=== PATIENT | female | born 1965 ===

== ENCOUNTER 2016-05-12 21:56 | Emergency (ER) | payer OTHER ==
[2016-05-12 21:56] VITALS: BMI 23.0
[2016-05-12 22:08] VITALS: BP 167/98; PULSE 112; RESP 16; TEMP 97.1; O2SAT 98
[2016-05-12] MEDS ORDERED: Oxycodone/Acetaminophen 5/325 mg Tab PO STA (22:29)
[2016-05-12] MEDS ORDERED: Oxycodone/Acetaminophen 5/325 mg Tab ONE (22:33)
--- NOTE | 2016-05-12 23:36 | CP.PCM.CON ---
History of Present Illness - History of Present Illness History of Present Illness: Patient is a 50 year old female with PMHx of fibromyalgia, RA, asthma, and HTN seen in the ED after podiatry consultation. Patient is 3 weeks s/p left foot triple arthrodesis and was sent by Dr. Plascencia, who performed the surgery, because she was complaining of pain and swelling to her forefoot. Patient states that she did not think the bandage was too tight around her foot. Patient states that she is currently taking percocet for the pain. She states that she has been icing and elevating her foot as well and nothing has helped the pain. Patient denies pain along the surgical site, just at the forefoot. Patient denies any other acute events, denies new onset of trauma to the foot. Patients dressing was clean,dry,intact. Denies n/f/v/c/d/sob. Review of Systems - Constitutional Constitutional: As Per HPI Past Patient History - Infectious Disease Hx of Infectious Diseases: None - Past Medical History & Family History Past Medical History?: Yes - Past Social History Smoking Status: Light Smoker < 10 Cigarettes Daily - CARDIAC Hx Cardiac Disorders: Yes Hx Hypertension: Yes - PULMONARY Hx Respiratory Disorders: Yes Hx Asthma: Yes Other/Comment: WHEEZING - NEUROLOGICAL Hx Neurological Disorder: Yes Other/Comment: FIBROMYALGIA - HEENT Hx HEENT Problems: No - RENAL Hx Chronic Kidney Disease: No - ENDOCRINE/METABOLIC Hx Endocrine Disorders: No Other/Comment: RA. fibromyalgia - HEMATOLOGICAL/ONCOLOGICAL Hx Blood Disorders: No Hx Blood Transfusions: No - INTEGUMENTARY Hx Dermatological Problems: No - MUSCULOSKELETAL/RHEUMATOLOGICAL Hx Musculoskeletal Disorders: Yes Hx Back Pain: Yes (chronic) Hx Falls: No ( DENIES) Hx Rheumatoid Arthritis: Yes Other/Comment: MUSCLE WEAKNESS - GASTROINTESTINAL Hx Gastrointestinal Disorders: No - GENITOURINARY/GYNECOLOGICAL Hx Genitourinary Disorders: No - PSYCHIATRIC Hx Psychophysiologic Disorder: No Hx Substance Use: No - SURGICAL HISTORY Hx Surgeries: Yes Hx Section: Yes Hx Musculoskeletal Surgery: Yes (Lft ankle ligament repair) Other/Comment: LEFT ANKLE-2016;C-SECTIONX1 - ANESTHESIA Hx Anesthesia: Yes Hx Anesthesia Reactions: No Hx Malignant Hyperthermia: No Meds Allergies/Adverse Reactions: Allergies Allergy/AdvReac Type Severity Reaction Status Date / Time Penicillins Allergy Unknown Verified 12/03/15 02:08 SEAFOOD Allergy Uncoded 12/03/15 02:09 Physical Exam - Constitutional Appears: Well, Non-toxic, No Acute Distress - Extremities Exam Additional comments: left foot focused: vascular: palpable DP pulse, lightly palpable PT pulse, CFT < 3 sec to all digits, TG wnl, nonpitting edema localized to dorsum of forefoot neuro: grossly intact derm: nonpitting edema to dorsal forefoot, no erythema, juani intact, no dehiscence, no open lesions, no purulence, no malodor, surgical incision site well-coapted, no acute clinical signs of infection, no ascending cellulitlis ortho: pain on palpation to dorsal forefoot - Neurological Exam Neurological exam: Alert, Oriented x3 - Psychiatric Exam Psychiatric exam: Normal Affect, Normal Mood Results - Vital Signs Recent Vital Signs: Last Vital Signs Temp 97.1 F L 05/12/16 22:03 Pulse 112 H 05/12/16 22:03 Resp 16 05/12/16 22:03 BP 167/98 H 05/12/16 22:03 Pulse Ox 98 05/12/16 22:03 - Labs Result Diagrams: 05/12/16 00:05 05/12/16 00:05 Assessment & Plan - Assessment and Plan (Free Text) Assessment: 51 y/o female seen at bedside in the ED 3 weeks s/p left foot triple arthrodesis for pain and swelling in left foot Plan: patient evaluated and chart reviewed discussed in detail with attending Dr. Plascencia labs and vitals reviewed; afebrile, WBC 19.8 x rays of left foot show soft tissue swelling, hardware intact and in good alignment CT shows soft tissue swelling, hardware intact, no evidence of osseous deformity applied webril, QUINTEN, webril QUINTEN to LLE patient instructed to continue icing and elevating extremity continue abx as instructed patient instructed to follow up with Dr. Plascencia in his office tomorrow
--- NOTE | 2016-05-12 23:42 | ED PDOC ---
Lower Extremity Pain/Injury Time Seen by Provider: 05/12/16 22:22 Chief Complaint (Nursing): Lower Extremity Problem/Injury Chief Complaint (Provider): left foot swelling History Per: Patient History/Exam Limitations: no limitations Onset/Duration Of Symptoms: Days Current Symptoms Are (Timing): Still Present Additional Complaint(s): 51yo female s/p fracture repair on April [address] Plascencia at this hospital presents to the ED with c/o left foot swelling. Has been in splint since surgery and for last week has increased swelling to foot. Some pain, but has been same intensity since the surgery. No fever, new trauma. Been on lovenox, antibiotics, and pain meds since surgery. Has been keeping leg elevated and icing as instructed. Discussed swelling with her doctor who told patient to come to ED for further eval. No calf pain, swelling, fever, chills, rash, bleeding, numbness. Past Medical History Reviewed: Historical Data, Nursing Documentation, Vital Signs Vital Signs: Last Vital Signs Temp 97.1 F L 05/12/16 22:03 Pulse 112 H 05/12/16 22:03 Resp 16 05/12/16 22:03 BP 167/98 H 05/12/16 22:03 Pulse Ox 98 05/12/16 22:03 - Medical History PMH: Asthma, Fibromyalgia, HTN, Rheumatoid Arthritis Denies: Chronic Kidney Disease - Surgical History Other surgeries: left foot fracture repair - Family History Family History: States: No Known Family Hx - Social History Current smoker - smoking cessation education provided: No - Immunization History Hx Tetanus Toxoid Vaccination: No Hx Influenza Vaccination: No Hx Pneumococcal Vaccination: No - Home Medications Home Medications: Ambulatory Orders Medication Instructions Recorded Albuterol HFA [Ventolin HFA 90 0.09 mg IH Q4 PRN #1 puff 03/15/15 mcg/actuation (8 g)] Pregabalin [Lyrica] 75 mg PO DAILY 08/15/15 Albuterol/Ipratropium [Duoneb 3 2 ea IH Q4H PRN #100 neb 09/10/15 mg/0.5 mg (3 ml) UD] Spacer, Inhalation [Aerochamber] 1 dev IH DAILY #1 dev 09/10/15 Fluconazole [Diflucan] 150 mg PO ONCE #2 tab 10/04/15 Leflunomide [Arava] 20 mg PO DAILY 10/04/15 Mometasone/Formoterol [Dulera 200 2 puff PO BID PRN 12/03/15 Mcg/5 Mcg Inhaler] hydroCHLOROthiazide [Hydrodiuril] 25 mg PO DAILY #14 tab 12/04/15 oxyCODONE/Acetaminophen [Percocet 1 tab PO TID #24 tab 12/04/15 5/325 mg Tab] Enoxaparin [Lovenox] 40 mg IJ DAILY #14 syr 04/22/16 Enoxaparin [Lovenox] 40 mg SC DAILY 04/22/16 Prednisone [Conchis] 5 mg PO DAILY 04/22/16 amLODIPine [Norvasc] 10 mg PO DAILY 04/22/16 - Allergies Allergies/Adverse Reactions: Allergies Allergy/AdvReac Type Severity Reaction Status Date / Time Penicillins Allergy Unknown RASH Verified 05/13/16 21:39 SEAFOOD Allergy RASH Uncoded 05/13/16 21:39 Review of Systems ROS Statement: Except As Marked, All Systems Reviewed And Found Negative Constitutional: Positive for: Other (no new trauma, no bleeding ). Negative for : Fever, Chills Musculoskeletal: Positive for: Other (left foot swelling, no calf pain or swelling ) Skin: Negative for: Rash Neurological: Negative for: Numbness Physical Exam - Reviewed Nursing Documentation Reviewed: Yes Vital Signs Reviewed: Yes - Physical Exam Appears: Positive for: Well, Non-toxic, No Acute Distress Head Exam: Positive for: ATRAUMATIC, NORMAL INSPECTION, NORMOCEPHALIC Skin: Positive for: Warm, Dry Extremity: Positive for: Normal ROM, Capillary Refill (less than 2 seconds ), Other (LLE: large surgical wounds to b/l malleolus extending down into feet, juani clean, dry, and intact; moderate erythema to dorsum of foot especially to mid and forefoot, pitting edema, minimal tenderness, minimal erythema, no localized fluctuance, difficulty palpating DP pulse due to swelling, light touch intact, no lower leg edema ). Negative for: Calf Tenderness, Deformity Neurologic/Psych: Positive for: Alert, Oriented - Laboratory Results Result Diagrams: 05/12/16 00:05 05/12/16 00:05 - ECG O2 Sat by Pulse Oximetry: 98 Pulse Ox Interpretation: Normal (RA) Medical Decision Making Medical Decision Makin: Impression: post-surgical foot edema Plan: Case discussed with Dr. Andrade (podiatry resident) who came to ED and evaluated the patient. CT LLE Labs XR left ankle and left foot Percocet 2 tab PO reassess Elevated WBC but pt on chronic steroid for RA. Elevated glucose c/w diabetes. Pt to be dc'd and f/u podiatry in AM Scribe Attestation: Documented by Bárbara Bull acting as a scribe for Yoanna Portillo MD. Provider Scribe Attestation: All medical record entries made by the Scribe were at my direction and personally dictated by me. I have reviewed the chart and agree that the record accurately reflects my personal performance of the history, physical exam, medical decision making, and the department course for this patient. I have also personally directed, reviewed, and agree with the discharge instructions and disposition. Disposition - Clinical Impression Clinical Impression: Edema of left foot Counseled Patient/Family Regarding: Studies Performed, Diagnosis, Need For Followup - Disposition Referrals: Garrett Plascencia DPM [Staff Provider] - 05/13/16 Disposition: Routine/Home Disposition Time: 00:00 Condition: STABLE Additional Instructions: FOLLOW UP WITH DR SAINZ TOMORROW. CONTINUE TO ICE EXTREMITY AND KEEP IT ELEVATED MUCH POSSIBLE CONTINUE MEDICATIONS PRESCRIBED. RETURN TO ER FOR WORSENING SYMPTOMS. Instructions: Pain Management After Surgery (GEN)
[2016-05-13 00:08] LABS: BASO # 0.2 K/uL (0.0-0.2); BASO % 1.1 % (0.0-2.0); EOS # 0.2 K/uL (0.0-0.7); EOS % 0.8 % (0.0-4.0); HEMATOCRIT 38.5 % (34.0-47.0); LYMPH # 4.4 K/uL (1.0-4.3); LYMPH % 22.4 % (20.0-40.0); MEAN CELL VOLUME 96.6 fl (81.0-99.0); MEAN CORPUSCULAR HEMOGLOBIN 31.1 pg (27.0-31.0); MEAN CORPUSCULAR HGB CONC 32.2 g/dL (33.0-37.0); MEAN PLATELET VOLUME 8.2 fl (7.2-11.7); MONO # 1.6 K/uL (0.0-0.8); MONO % 8.3 % (0.0-10.0); NEUT # 13.4 K/uL (1.8-7.0); NEUT % 67.4 % (50.0-75.0); NRBC % 0.1 % (0.0-0.0); RED CELL DISTRIBUTION WIDTH 14.6 % (11.5-14.5); WHITE BLOOD COUNT 19.8 K/uL (4.8-10.8)
[2016-05-13 00:21] LABS: ALB/GLOB RATIO 1.3 (1.0-2.1); ALKALINE PHOSPHATASE 97 U/L (38-126); ALT/SGPT 31 U/L (9-52); AST/SGOT 16 U/L (14-36); BILIRUBIN,TOTAL 0.3 mg/dl (0.2-1.3); BLOOD UREA NITROGEN 15 mg/dl (7-17); CALCIUM 9.6 mg/dL (8.4-10.2); CARBON DIOXIDE 25 mmol/L (22-30); CHLORIDE 104 mmol/L (98-107); GFR AFRICAN-AMERICAN > 60; GLUCOSE,RANDOM 211 mg/dL (65-105); POTASSIUM 3.2 MMOL/L (3.6-5.0); SODIUM 141 mmol/l (132-148); TOTAL PROTEIN 6.7 G/DL (6.3-8.2)
--- NOTE | 2016-05-13 14:10 | RAD ---
PROCEDURE: Left ankle dated in 04/201905/09/2016. History: HISTORY: LEFT foot pain and swelling s/p surgery COMPARISON: Comparison made with concurrent radiographs of the left foot and prior radiographs of the left foot dated 04/22/2016. TECHNIQUE: Three views of the left ankle performed. FINDINGS: Current study re- demonstrates postsurgical changes of the left hindfoot and midfoot unchanged. Skin closure juani overlying the medial and lateral margins of the ankle and midfoot region. IMPRESSION: Stable postsurgical changes left hindfoot and midfoot. . Please refer to operative report for additional details
--- NOTE | 2016-05-13 15:33 | RAD ---
Left foot radiographs 05/12/2016 PROCEDURE: HISTORY: LEFT foot pain and swelling s/p surgery COMPARISON: Correlation made with concurrent radiographs of the left ankle and prior radiographs left foot dated 04/22/2016. FINDINGS: BONES: Postoperative changes involving the mid and hindfoot again noted with satisfactory alignment. Hardware appears intact without evidence of loosening or infection. . Skin closure juani overlying the medial lateral soft tissues. JOINTS: Unchanged SOFT TISSUES: There is moderate to fairly significant circumferential soft tissue swelling at the level of the metatarsals and proximal phalanges. Findings may represent cellulitis/infection OTHER FINDINGS: None. IMPRESSION: Stable postoperative changes hindfoot and midfoot with satisfactory alignment. Hardware appears intact. There is moderate -fairly significant circumferential soft tissue swelling at the level of the metatarsals and proximal phalanges. Rule out cellulitis/infection. Note that this report was placed in PA review folder for followup
--- NOTE | 2016-05-13 16:33 | CT ---
PROCEDURE: CT of the left ankle/foot without contrast. HISTORY: LEFT foot/ankle swelling s/p surgery COMPARISON: Comparison is made to the previous x-ray of the left ankle and foot done on the same date. TECHNIQUE: Axial and reformatted coronal and sagittal CT images of the left ankle and foot were obtained without IV contrast administration. FINDINGS: Postsurgical changes are seen. The patient is status post internal fusion through the talocalcaneal articulation by large screw. There are also internal fusion and fixation devices at the tarsal bones and talonavicular articulation. The hardware are seen at appropriate position. There is small to moderate size plantar calcaneal spur. There is moderate soft tissue edema. No evidence of discrete drainable fluid collection. Moderate osteoarthritic and arthritic degenerative changes seen at the ankle and tarsal metatarsal and intra tarsal joints. IMPRESSION: Postsurgical changes as described above. Moderate diffuse soft tissue edema. No evidence of discrete fluid collection in this noncontrast study.
== END 2016-05-13 00:25 | disposition home or self-care (01) ==
LOC: H.ER 21:56
DX: Z98.890 Other specified postprocedural states (principal); R60.0 Localized edema; I10 Essential (primary) hypertension; M79.89 Other specified soft tissue disorders; Z88.0 Allergy status to penicillin; J45.909 Unspecified asthma, uncomplicated; Z71.6 Tobacco abuse counseling

== ENCOUNTER 2016-05-13 21:22 | Emergency (ER) | payer OTHER ==
[2016-05-13 21:23] VITALS: BMI 23.0
[2016-05-13 21:39] VITALS: PULSE 103; RESP 20; TEMP 97.9; O2SAT 99
--- NOTE | 2016-05-13 22:24 | ED PDOC ---
Lower Extremity Pain/Injury Time Seen by Provider: 05/13/16 22:22 Chief Complaint (Nursing): Lower Extremity Problem/Injury Chief Complaint (Provider): left foot pain History Per: Patient History/Exam Limitations: no limitations Additional Complaint(s): 51yoF in ED sent by KIM Yap for further eval of foot. pt was seen in office today, had fluids drainage from swelling to area of incision. admits to worsening of swelling with drainage and pain(burning) sensation. denies fever, chills nausea. PT had left foot triple arthrodesis 3 weeks ago. Pt was seen in Ed yesterday for similar complaints. pt with hx of RA Past Medical History Vital Signs: Last Vital Signs Temp 97.9 F 05/13/16 21:29 Pulse 103 H 05/13/16 21:29 Resp 20 05/13/16 21:29 BP Pulse Ox 99 05/13/16 21:29 - Medical History PMH: Asthma, Fibromyalgia, HTN, Rheumatoid Arthritis Denies: Chronic Kidney Disease - Family History Family History: States: Unknown Family Hx - Immunization History Hx Tetanus Toxoid Vaccination: No Hx Influenza Vaccination: No Hx Pneumococcal Vaccination: No - Home Medications Home Medications: Ambulatory Orders Medication Instructions Recorded Albuterol HFA [Ventolin HFA 90 0.09 mg IH Q4 PRN #1 puff 03/15/15 mcg/actuation (8 g)] Pregabalin [Lyrica] 75 mg PO DAILY 08/15/15 Albuterol/Ipratropium [Duoneb 3 2 ea IH Q4H PRN #100 neb 09/10/15 mg/0.5 mg (3 ml) UD] Spacer, Inhalation [Aerochamber] 1 dev IH DAILY #1 dev 09/10/15 Fluconazole [Diflucan] 150 mg PO ONCE #2 tab 10/04/15 Leflunomide [Arava] 20 mg PO DAILY 10/04/15 Mometasone/Formoterol [Dulera 200 2 puff PO BID PRN 12/03/15 Mcg/5 Mcg Inhaler] hydroCHLOROthiazide [Hydrodiuril] 25 mg PO DAILY #14 tab 12/04/15 oxyCODONE/Acetaminophen [Percocet 1 tab PO TID #24 tab 12/04/15 5/325 mg Tab] Enoxaparin [Lovenox] 40 mg IJ DAILY #14 syr 04/22/16 Enoxaparin [Lovenox] 40 mg SC DAILY 04/22/16 Prednisone [Conchis] 5 mg PO DAILY 04/22/16 amLODIPine [Norvasc] 10 mg PO DAILY 04/22/16 - Allergies Allergies/Adverse Reactions: Allergies Allergy/AdvReac Type Severity Reaction Status Date / Time Penicillins Allergy Unknown RASH Verified 05/13/16 21:39 SEAFOOD Allergy RASH Uncoded 05/13/16 21:39 - Laboratory Results Result Diagrams: 05/13/16 23:23 - ECG O2 Sat by Pulse Oximetry: 99 - Progress ED Course And Treament: podiatry evaluated pt-requests re-draw of labs. pt with elevated WBC when seen yesterday. will evaluate if pt will need admission for IV abx. Pt admits she is on steroid 10mg daily for 2 weeks during RA flare ups. morphine 2mg for pain control. pt takes perocets for pain routinely. Medical Decision Making Medical Decision Making: Pt will f.u in 1 week with MD Alethea and advised strongly to f/u rhuemotology wound dressing applies. Pt to continue to pain regimen. pt currently without elevated WBC, stable VS well appearing. at this time no clinical indication for admission at this time. Medical record review-pt with hx of above normal WBC count. Pt with hx of RA and steroid use-which may account for transient elevation of wBC. Disposition - Clinical Impression Clinical Impression: Edema of left foot - Patient ED Disposition Is Patient to be Admitted: No Counseled Patient/Family Regarding: Studies Performed, Diagnosis, Need For Followup - Disposition Disposition: Routine/Home Disposition Time: 23:59 Condition: STABLE Additional Instructions: please followup with your rheumotolgoist. Instructions: Leg Edema (ED)
--- NOTE | 2016-05-13 22:35 | CP.PCM.CON ---
History of Present Illness - History of Present Illness History of Present Illness: 50 year old female with PMHx of fibromyalgia, RA, asthma, and HTN seen in the ED after podiatry consultation. Patient is 3 weeks s/p left foot triple arthrodesis and was sent by Dr. Plascencia, who performed the surgery, because she was complaining of tingling and swelling to her left foot. She was seen in the ED last night as well as in Dr. Plascnecia's office today. In office, she states she had an I and D. She states that the tingling, burning and swelling is worse now compared to this morning. Patient states that she is currently taking percocet 10/325 for the pain, as well as cipro, and predisone. She states that she has been icing and elevating her foot as well and nothing has helped the pain. Patient denies any other acute events, denies new onset of trauma to the foot. Denies n/f/v/c/d/sob. Past Patient History - Infectious Disease Hx of Infectious Diseases: None - Past Medical History & Family History Past Medical History?: Yes - Past Social History Smoking Status: Light Smoker < 10 Cigarettes Daily - CARDIAC Hx Hypertension: Yes - PULMONARY Hx Asthma: Yes - NEUROLOGICAL Hx Neurological Disorder: Yes Other/Comment: FIBROMYALGIA - HEENT Hx HEENT Problems: No - RENAL Hx Chronic Kidney Disease: No - ENDOCRINE/METABOLIC Hx Endocrine Disorders: No Other/Comment: RA. fibromyalgia - HEMATOLOGICAL/ONCOLOGICAL Hx Blood Disorders: No Hx Blood Transfusions: No - INTEGUMENTARY Hx Dermatological Problems: No - MUSCULOSKELETAL/RHEUMATOLOGICAL Hx Rheumatoid Arthritis: Yes - GASTROINTESTINAL Hx Gastrointestinal Disorders: No - GENITOURINARY/GYNECOLOGICAL Hx Genitourinary Disorders: No - PSYCHIATRIC Hx Psychophysiologic Disorder: No Hx Substance Use: No - SURGICAL HISTORY Hx Surgeries: Yes Hx Section: Yes Hx Musculoskeletal Surgery: Yes (Lft ankle ligament repair) Other/Comment: LEFT ANKLE-2016;C-SECTIONX1 - ANESTHESIA Hx Anesthesia: Yes Hx Anesthesia Reactions: No Hx Malignant Hyperthermia: No Meds Allergies/Adverse Reactions: Allergies Allergy/AdvReac Type Severity Reaction Status Date / Time Penicillins Allergy Unknown RASH Verified 05/13/16 21:39 SEAFOOD Allergy RASH Uncoded 05/13/16 21:39 Physical Exam - Constitutional Appears: Non-toxic - Extremities Exam Additional comments: Lower extremity focused exam: Vasc: DP and PT pulses palpable 2/4 on the right. DP pulses on left non- palpable due to non-pitting edema, PT pulses lightly palpable on the left. CFT < 3 sec to all digits. Non-pitting edema localized to dorsum of left. Skin temperature warm to warm from proximal to distal b/l, with increased warmth noted left greater than right. Neuro: Gross sensation intact b/l Derm: Domi intact to surgical site on the left foot, no dehiscence,surgical site well coapted. Erythema noted to the left foot distal to the malleoli extending to the digits. Small stab incision noted to dorsum of left forefoot over 2nd metatarsal from I and D. Serous drainage noted from the left foot. No malodor, no purulence, no fluctuance noted. Non-pitting edema noted to left foot. Ortho: Pain on palpation to dorsum of left foot - Neurological Exam Neurological exam: Alert, Oriented x3 - Psychiatric Exam Psychiatric exam: Normal Affect, Normal Mood Results - Vital Signs Recent Vital Signs: Last Vital Signs Temp 97.9 F 05/13/16 21:29 Pulse 103 H 05/13/16 21:29 Resp 20 05/13/16 21:29 BP Pulse Ox 99 05/13/16 22:32 - Labs Result Diagrams: 05/13/16 23:23 05/13/16 23:23 Assessment & Plan - Assessment and Plan (Free Text) Assessment: 51 year old female with PMHx of RA, fibromyalgia, asthma, and HTN with swelling and pain in left foot Plan: Patient examined and evaluated Chart, labs, vitals reviewed Discussed in detail with attending, Dr. Plascencia Wound culture of left foot obtained CT and radiographs from 05/12/16 reviewed Continue oral abx Left foot dressed with DSD Patient to remain non-WB to LLE with crutches Patient re-evaluated 1 hour after initial exam, noted to have decreased edema and erythema to left foot Patient to keep LLE elevated as much as possible, and ice prn Follow up with Maintenance Person Follow up with Dr. Plascencia in office next week
[2016-05-13 23:28] LABS: BASO # 0.1 K/uL (0.0-0.2); BASO % 0.6 % (0.0-2.0); EOS # 0.2 K/uL (0.0-0.7); EOS % 1.6 % (0.0-4.0); HEMATOCRIT 39.3 % (34.0-47.0); MEAN CELL VOLUME 96.1 fl (81.0-99.0); MEAN CORPUSCULAR HEMOGLOBIN 31.5 pg (27.0-31.0); MEAN CORPUSCULAR HGB CONC 32.7 g/dL (33.0-37.0); MEAN PLATELET VOLUME 8.3 fl (7.2-11.7); MONO # 0.6 K/uL (0.0-0.8); MONO % 5.2 % (0.0-10.0); NEUT # 9.5 K/uL (1.8-7.0); NEUT % 83.6 % (50.0-75.0); PLATELET COUNT 346 K/uL (130-400); RED CELL DISTRIBUTION WIDTH 14.5 % (11.5-14.5); WHITE BLOOD COUNT 11.4 K/uL (4.8-10.8)
[2016-05-13 23:51] LABS: ALB/GLOB RATIO 1.3 (1.0-2.1); ALKALINE PHOSPHATASE 114 U/L (38-126); ALT/SGPT 33 U/L (9-52); AST/SGOT 22 U/L (14-36); BILIRUBIN,TOTAL 0.3 mg/dl (0.2-1.3); BLOOD UREA NITROGEN 17 mg/dl (7-17); CALCIUM 9.7 mg/dL (8.4-10.2); CARBON DIOXIDE 27 mmol/L (22-30); CHLORIDE 103 mmol/L (98-107); GFR AFRICAN-AMERICAN > 60; GLUCOSE,RANDOM 255 mg/dL (65-105); POTASSIUM 3.9 MMOL/L (3.6-5.0); SODIUM 144 mmol/l (132-148); TOTAL PROTEIN 7.2 G/DL (6.3-8.2)
[2016-05-14 01:36] LABS: BASOPHIL 2 % (0-2); EOSINOPHIL 1 % (0-7); NEUTROPHIL 78 % (42-75); TOTAL CELLS COUNTED 100
== END 2016-05-14 00:17 | disposition home or self-care (01) ==
LOC: H.ER 21:22
DX: R60.0 Localized edema (principal); I10 Essential (primary) hypertension; M06.9 Rheumatoid arthritis, unspecified; M79.7 Fibromyalgia

== ENCOUNTER 2016-10-09 03:58 | Emergency (ER) | payer OTHER ==
[2016-10-09 03:58] VITALS: BMI 23.0
[2016-10-09 04:10] VITALS: BP 156/93; PULSE 114; RESP 16; TEMP 99.7; O2SAT 97
--- NOTE | 2016-10-09 04:41 | ED PDOC ---
HPI: General Adult Time Seen by Provider: 10/09/16 04:07 Chief Complaint (Nursing): Lower Extremity Problem/Injury Chief Complaint (Provider): Diffuse Body Aches History Per: Patient History/Exam Limitations: no limitations Onset/Duration Of Symptoms: Days (x1) Current Symptoms Are (Timing): Still Present Additional Complaint(s): Flory Cooper is a 51 year old female that presents to the ED with a chief complaint of diffuse body aches and joint pain secondary to her rheumatoid arthritis and fibromyalgia that she has been experiencing for the past day. Patient reports that she regularly takes Percocet daily but has depleted her supply. She denies any trauma or fever. Of Note: Patient has not seen instrument room technician in several months due to complications in her foot surgery. Past Medical History Reviewed: Historical Data, Nursing Documentation, Vital Signs Vital Signs: Last Vital Signs Temp 99.7 F H 10/09/16 04:07 Pulse 114 H 10/09/16 04:07 Resp 16 10/09/16 04:07 BP 156/93 H 10/09/16 04:07 Pulse Ox 97 10/09/16 04:45 - Medical History PMH: Asthma, Fibromyalgia, HTN, Rheumatoid Arthritis Denies: Chronic Kidney Disease - Family History Family History: States: Unknown Family Hx - Immunization History Hx Tetanus Toxoid Vaccination: No Hx Influenza Vaccination: No Hx Pneumococcal Vaccination: No - Home Medications Home Medications: Ambulatory Orders Medication Instructions Recorded Albuterol HFA [Ventolin HFA 90 0.09 mg IH Q4 PRN #1 puff 03/15/15 mcg/actuation (8 g)] Pregabalin [Lyrica] 75 mg PO DAILY 08/15/15 Albuterol/Ipratropium [Duoneb 3 2 ea IH Q4H PRN #100 neb 09/10/15 mg/0.5 mg (3 ml) UD] Spacer, Inhalation [Aerochamber] 1 dev IH DAILY #1 dev 09/10/15 Fluconazole [Diflucan] 150 mg PO ONCE #2 tab 10/04/15 Leflunomide [Arava] 20 mg PO DAILY 10/04/15 Mometasone/Formoterol [Dulera 200 2 puff PO BID PRN 12/03/15 Mcg/5 Mcg Inhaler] hydroCHLOROthiazide [Hydrodiuril] 25 mg PO DAILY #14 tab 12/04/15 oxyCODONE/Acetaminophen [Percocet 1 tab PO TID #24 tab 12/04/15 5/325 mg Tab] Enoxaparin [Lovenox] 40 mg IJ DAILY #14 syr 04/22/16 Enoxaparin [Lovenox] 40 mg SC DAILY 04/22/16 Prednisone [Conchis] 5 mg PO DAILY 04/22/16 amLODIPine [Norvasc] 10 mg PO DAILY 04/22/16 Meloxicam [Mobic] 7.5 mg PO DAILY PRN #30 tab 10/09/16 - Allergies Allergies/Adverse Reactions: Allergies Allergy/AdvReac Type Severity Reaction Status Date / Time Penicillins Allergy Unknown RASH Verified 05/13/16 21:39 SEAFOOD Allergy RASH Uncoded 05/13/16 21:39 Review of Systems Constitutional: Positive for: Other (Diffuse body aches, joint pain. Denies trauma.). Negative for: Fever Physical Exam - Reviewed Nursing Documentation Reviewed: Yes Vital Signs Reviewed: Yes - Physical Exam Appears: Positive for: Non-toxic, No Acute Distress Head Exam: Positive for: ATRAUMATIC, NORMOCEPHALIC Skin: Positive for: Normal Color. Negative for: Rash Eye Exam: Positive for: Normal appearance, EOMI, PERRL Extremity: Positive for: Normal ROM, Other (All joints without warmth, swelling , erythema, or tenderness.). Negative for: Tenderness, Swelling Neurologic/Psych: Positive for: Alert, Oriented. Negative for: Motor/Sensory Deficits - ECG O2 Sat by Pulse Oximetry: 97 (RA) Pulse Ox Interpretation: Normal - Progress ED Course And Treament: Pt. searched on [place] [employer] which indicate that pt. does get a monthly supply of Percocet. Last Rx was from Dr. Plascencia on 09/24/2016 for a 4 day supply. Medical Decision Making Medical Decision Making: Impression: Diffuse Myalgias Plan: * Toradol 15 mg IM * Reevlauation Scribe Attestation: Documented by Roxanna Castillo, acting as a scribe for Raman Bhatia MD. Provider Scribe Attestation: All medical record entries made by the Scribe were at my direction and personally dictated by me. I have reviewed the chart and agree that the record accurately reflects my personal performance of the history, physical exam, medical decision making, and the department course for this patient. I have also personally directed, reviewed, and agree with the discharge instructions and disposition. Disposition - Clinical Impression Clinical Impression: Fibromyalgia, Rheumatoid arthritis - Patient ED Disposition Is Patient to be Admitted: No - Disposition Referrals: [facility] [Outside] Disposition: Routine/Home Disposition Time: 05:00 Condition: STABLE Additional Instructions: FOLLOW UP WITH YOUR VICTIMS ADVOCATE CLERK/SPECIALIST FOR FURTHER EVALUATION. Prescriptions: Meloxicam [Mobic] 7.5 mg PO DAILY PRN #30 tab PRN Reason: Pain Instructions: Fibromyalgia (ED), Rheumatoid Arthritis (ED) Forms: [employer] (Tajik) Print Language: DANISH
== END 2016-10-09 04:45 | disposition home or self-care (01) ==
LOC: H.ER 03:58
DX: M79.7 Fibromyalgia (principal); M06.9 Rheumatoid arthritis, unspecified
CPT/HCPCS: 96372; 99281; J1885

== ENCOUNTER 2017-05-09 17:41 | Emergency (ER) | payer OTHER ==
[2017-05-09 17:42] VITALS: BMI 23.0
[2017-05-09 17:51] VITALS: RESP 16
--- NOTE | 2017-05-09 18:14 | ED PDOC ---
Arrival/HPI - General Chief Complaint: Pain, Chronic Time Seen by Provider: 05/09/17 17:52 Historian: Patient (52 Y/O FEMALE HERE FOR EVALUATION OF ONGOING GENERALIZED PAIN ASSOCIATED WITH RUNNING OUT OF PERCOCET RX. STATES SHE HAS MEDICATION WRITTEN MONTHLY BY PMD BUT FINISHED EARLIER THAN PRESCRIBED DATE DUE TO RHEUMATOID ARTHRITIS FLARE-UP RECENTLY. WAS SEEN IN HOSPITAL IN [place] LAST NIGHT AND GIVEN PERCOCET 1 TAB IN ED. STATES SHE IS UNABLE TO GET REFILL UNTIL 05/14. DENIES ANY OTHER COMPLAINTS.) Past Medical History - Infectious Disease Hx of Infectious Diseases: None - Cardiac Hx Hypertension: Yes - Pulmonary Hx Asthma: Yes - Neurological Hx Neurological Disorder: Yes Other/Comment: FIBROMYALGIA - HEENT Hx HEENT Disorder: No - Renal Hx Renal Disorder: No - Endocrine/Metabolic Hx Endocrine Disorders: No Other/Comment: RA. fibromyalgia - Hematological/Oncological Hx Blood Disorders: No Hx Blood Transfusions: No - Integumentary Hx Dermatological Disorder: No - Musculoskeletal/Rheumatological Hx Rheumatoid Arthritis: Yes - Gastrointestinal Hx Gastrointestinal Disorders: No - Genitourinary/Gynecological Hx Genitourinary Disorders: No - Psychiatric Hx Psychophysiologic Disorder: No Hx Substance Use: No - Surgical History Hx Section: Yes Hx Musculoskeletal Surgery: Yes (Lft ankle ligament repair) Other/Comment: LEFT ANKLE-2016;[id number] - Anesthesia Hx Anesthesia: Yes Hx Anesthesia Reactions: No Hx Malignant Hyperthermia: No - Suicidal Assessment Feels Threatened In Home Enviroment: No Family/Social History Family/Social History: No Known Family HX Smoking Status: Light Smoker < 10 Cigarettes Daily Hx Alcohol Use: No Hx Substance Use: No Allergies/Home Meds Allergies/Adverse Reactions: Allergies Penicillins Allergy (Unknown, Verified 05/13/16 21:39) RASH SEAFOOD Allergy (Uncoded 05/13/16 21:39) RASH Home Medications: Home Meds Medication Instructions Recorded Confirmed Pregabalin [Lyrica] 75 mg PO DAILY 08/15/15 04/22/16 Leflunomide [Arava] 20 mg PO DAILY 10/04/15 04/22/16 Mometasone/Formoterol [Dulera 200 2 puff PO BID PRN 12/03/15 04/22/16 Mcg/5 Mcg Inhaler] Enoxaparin [Lovenox] 40 mg SC DAILY 04/22/16 04/22/16 Prednisone [Conchis] 5 mg PO DAILY 04/22/16 04/22/16 amLODIPine [Norvasc] 10 mg PO DAILY 04/22/16 04/22/16 Review of Systems - Review of Systems Constitutional: Normal, Other (HEADACHE) Eyes: Normal ENT: Normal Respiratory: Normal Cardiovascular: Normal Gastrointestinal: Normal Genitourinary Female: Normal Musculoskeletal: Normal, Myalgias Skin: Normal Neurological: Normal Endocrine: Normal Hemo/Lymphatic: Normal Psychiatric: Normal Physical Exam Vital Signs Temp Pulse Resp BP Pulse Ox 05/09/17 17:46 97.9 F 125 H 16 153/93 H 97 Temperature: Afebrile Blood Pressure: Normal Pulse: Regular Respiratory Rate: Normal Appearance: Positive for: Well-Appearing, Non-Toxic, Comfortable Pain Distress: None Mental Status: Positive for: Alert and Oriented X 3 - Systems Exam Head: Present: Atraumatic, Normocephalic Pupils: Present: PERRL Extroacular Muscles: Present: EOMI Conjunctiva: Present: Normal Mouth: Present: Moist Mucous Membranes Neck: Present: Normal Range of Motion Respiratory/Chest: Present: Clear to Auscultation, Good Air Exchange. No: Respiratory Distress, Accessory Muscle Use Cardiovascular: Present: Regular Rate and Rhythm, Normal S1, S2. No: Murmurs Abdomen: Present: Normal Bowel Sounds. No: Tenderness, Distention, Peritoneal Signs Back: Present: Normal Inspection Upper Extremity: Present: Normal Inspection. No: Cyanosis, Edema Lower Extremity: Present: Normal Inspection. No: Edema Neurological: Present: GCS=15, CN II-XII Intact, Speech Normal Skin: Present: Warm, Dry, Normal Color. No: Rashes Psychiatric: Present: Alert, Oriented x 3, Normal Insight, Normal Concentration Medical Decision Making ED Course and Treatment: 05/09/17 18:15 PERCOCET 5/325 MG X 1 DOSE TORADOL 30 MG IM X 1 XDOSE Disposition/Present on Arrival - Present on Arrival Any Indicators Present on Arrival: No History of DVT/PE: No History of Uncontrolled Diabetes: No Urinary Catheter: No History Surgical Site Infection Following: None - Disposition Have Diagnosis and Disposition been Completed?: No Diagnosis: Rheumatoid arthritis Disposition: HOME/ ROUTINE Disposition Time: 18:30 Patient Plan: Discharge Condition: FAIR Discharge Instructions (ExitCare): Rheumatoid Arthritis (DC), Chronic Pain Prescriptions: Meloxicam 7.5 mg PO BID PRN #14 tablet PRN Reason: Pain, Moderate (4-7)
[2017-05-09] MEDS: Oxycodone/Acetaminophen 5/325 mg Tab PO STA ×2 (18:27→18:28)
[2017-05-09 19:37] VITALS: BP 134/86; PULSE 102; TEMP 97.8; O2SAT 93
[2017-05-10] MEDS ORDERED: Albuterol-Ipratrop 3 mg / 0.5 (3 ml) UD ONE (00:38)
[2017-05-10] MEDS ORDERED: Oxycodone/Acetaminophen 5/325 mg Tab ONE (00:55)
[2017-05-10] MEDS ORDERED: Morphine 4 MG/ML VIAL ONE (03:39)
== END 2017-05-09 20:09 | disposition home or self-care (01) ==
LOC: H.ER 17:41
DX: M06.9 Rheumatoid arthritis, unspecified (principal); I10 Essential (primary) hypertension; M79.7 Fibromyalgia; Z88.0 Allergy status to penicillin
CPT/HCPCS: 81025; 96372; 99283; J1885

== ENCOUNTER 2017-05-10 00:02 | Emergency (ER) | payer OTHER ==
[2017-05-10 00:02] VITALS: BMI 23.0
[2017-05-10] MEDS ORDERED: Albuterol-Ipratrop 3 mg / 0.5 (3 ml) UD IH STA (00:33)
--- NOTE | 2017-05-10 00:35 | ED PDOC ---
HPI: General Adult Time Seen by Provider: 05/10/17 00:17 Chief Complaint (Nursing): Back Pain Chief Complaint (Provider): body pain History Per: Patient History/Exam Limitations: no limitations Onset/Duration Of Symptoms: Days Current Symptoms Are (Timing): Still Present Additional Complaint(s): 52 y/o female history of rheumatoid arthritis, fibromyalgia, asthma, diabetes brought in by EMS for evaluation of ongoing body pain x 1 week. Patient states she finished her monthly Percocet prescription early due to flare-up, and does not have an appointment to see her primary doctor for a refill until 5 days from now. Patient states she was evaluated at [facility] ED yesterday and given percocet and discharged, and here earlier today and given percocet + injection and discharged. Denies fever, nausea/vomiting, chest pain, shortness of breath , palpitations, abdominal pain, changes in bowel movements, urinary symptoms. Past Medical History Reviewed: Nursing Documentation, Vital Signs Vital Signs: Last Vital Signs Temp 98.2 F 05/10/17 05:38 Pulse 104 H 05/10/17 05:38 Resp 19 05/10/17 05:38 BP 150/92 H 05/10/17 05:38 Pulse Ox 94 L 05/10/17 05:43 - Medical History PMH: Asthma, Fibromyalgia, HTN, Rheumatoid Arthritis Denies: Chronic Kidney Disease - Surgical History Other surgeries: left ankle sx - Family History Family History: States: Unknown Family Hx - Social History Current smoker - smoking cessation education provided: Yes Alcohol: None Drugs: Denies - Immunization History Hx Tetanus Toxoid Vaccination: No Hx Influenza Vaccination: No Hx Pneumococcal Vaccination: No - Home Medications Home Medications: Ambulatory Orders Medication Instructions Recorded Albuterol HFA [Ventolin HFA 90 0.09 mg IH Q4 PRN #1 puff 03/15/15 mcg/actuation (8 g)] Pregabalin [Lyrica] 75 mg PO DAILY 08/15/15 Albuterol/Ipratropium [Duoneb 3 2 ea IH Q4H PRN #100 neb 09/10/15 mg/0.5 mg (3 ml) UD] Spacer, Inhalation [Aerochamber] 1 dev IH DAILY #1 dev 09/10/15 Fluconazole [Diflucan] 150 mg PO ONCE #2 tab 10/04/15 Leflunomide [Arava] 20 mg PO DAILY 10/04/15 Mometasone/Formoterol [Dulera 200 2 puff PO BID PRN 12/03/15 Mcg/5 Mcg Inhaler] hydroCHLOROthiazide [Hydrodiuril] 25 mg PO DAILY #14 tab 12/04/15 oxyCODONE/Acetaminophen [Percocet 1 tab PO TID #24 tab 12/04/15 5/325 mg Tab] Enoxaparin [Lovenox] 40 mg IJ DAILY #14 syr 04/22/16 Enoxaparin [Lovenox] 40 mg SC DAILY 04/22/16 Prednisone [Conchis] 5 mg PO DAILY 04/22/16 amLODIPine [Norvasc] 10 mg PO DAILY 04/22/16 Meloxicam [Mobic] 7.5 mg PO DAILY PRN #30 tab 10/09/16 Meloxicam 7.5 mg PO BID PRN #14 tablet 05/09/17 Cyclobenzaprine [Cyclobenzaprine 10 mg PO BID PRN #14 tab 05/10/17 HCl] Prednisone 50 mg PO DAILY 4 Days tablet 05/10/17 traMADol [Ultram] 50 mg PO Q8 PRN #12 tab 05/10/17 Cyclobenzaprine [Flexeril] 5 mg PO BID PRN 5 Days tab 05/14/17 Gabapentin 300 mg PO BID PRN 5 Days capsule 05/14/17 Ibuprofen [Motrin] 600 mg PO TID 7 Days tab 05/14/17 Ondansetron [Zofran] 4 mg PO Q8H PRN #6 tab 05/14/17 - Allergies Allergies/Adverse Reactions: Allergies Allergy/AdvReac Type Severity Reaction Status Date / Time Penicillins Allergy Unknown RASH Verified 05/14/17 08:48 SEAFOOD Allergy RASH Uncoded 05/14/17 08:48 Review of Systems ROS Statement: Except As Marked, All Systems Reviewed And Found Negative Musculoskeletal: Positive for: Other ("bone pain") Physical Exam - Reviewed Nursing Documentation Reviewed: Yes Vital Signs Reviewed: Yes - Physical Exam Appears: Positive for: Well, Non-toxic, No Acute Distress Head Exam: Positive for: ATRAUMATIC, NORMAL INSPECTION, NORMOCEPHALIC Skin: Positive for: Normal Color ENT: Positive for: Normal ENT Inspection Cardiovascular/Chest: Positive for: Regular Rate, Rhythm Respiratory: Positive for: Wheezing Gastrointestinal/Abdominal: Positive for: Normal Exam Back: Positive for: Normal Inspection Extremity: Positive for: Normal ROM Neurologic/Psych: Positive for: Alert, Oriented - Laboratory Results Result Diagrams: 05/10/17 00:45 05/10/17 00:45 - ECG O2 Sat by Pulse Oximetry: 94 - Progress ED Course And Treament: labs, IV toradol, PO percocet WBC elevated; patient on maintenance Prednisone 5mg daily Patient reports pain on re-evaluation; IV morphine dose ordered Patient states pain improved after Morphine but feels "restless". Ativan ordered. Patient offered admission for RA flare but declined, wants to go home. Patient discharged with rx Prednisone, flexeril, tramadol. Advised to follow up with a animated cartoons painter Return to ED for worsening/concerning symptoms. Disposition - Clinical Impression Clinical Impression: Rheumatoid arthritis, Opioid dependence - Patient ED Disposition Is Patient to be Admitted: No Counseled Patient/Family Regarding: Studies Performed, Diagnosis, Need For Followup, Rx Given - Disposition Disposition: Routine/Home Disposition Time: 04:08 Condition: IMPROVED Prescriptions: Cyclobenzaprine [Cyclobenzaprine HCl] 10 mg PO BID PRN #14 tab PRN Reason: Muscle Spasm Prednisone 50 mg PO DAILY 4 Days tablet traMADol [Ultram] 50 mg PO Q8 PRN #12 tab PRN Reason: Pain, Severe (8-10) Instructions: Rheumatoid Arthritis, Prescription Drug Misuse Forms: [employer] (Khmer)
[2017-05-10] MEDS ORDERED: Oxycodone/Acetaminophen 5/325 mg Tab PO ONE (00:51)
[2017-05-10 00:57] LABS: BASO % 0.1 % (0.0-2.0); EOS % 0.1 % (0.0-4.0); HEMOGLOBIN 14.3 g/dL (12.0-16.0); LYMPH # 1.6 K/uL (1.0-4.3); LYMPH % 8.1 % (20.0-40.0); MEAN CELL VOLUME 94.4 fl (81.0-99.0); MEAN CORPUSCULAR HEMOGLOBIN 31.2 pg (27.0-31.0); MEAN CORPUSCULAR HGB CONC 33.1 g/dL (33.0-37.0); MEAN PLATELET VOLUME 8.6 fl (7.2-11.7); MONO # 1.3 K/uL (0.0-0.8); MONO % 6.5 % (0.0-10.0); NEUT # 16.7 K/uL (1.8-7.0); NEUT % 85.2 % (50.0-75.0); PLATELET COUNT 465 K/uL (130-400); RBC 4.59 Mil/uL (3.80-5.20); RED CELL DISTRIBUTION WIDTH 15.4 % (11.5-14.5); WHITE BLOOD COUNT 19.6 K/uL (4.8-10.8)
[2017-05-10 01:01] LABS: ALB/GLOB RATIO 1.2 (1.0-2.1); ALBUMIN 4.4 g/dL (3.5-5.0); ALT/SGPT 26 U/L (9-52); AST/SGOT 20 U/L (14-36); BLOOD UREA NITROGEN 17 mg/dl (7-17); CALCIUM 10.4 mg/dL (8.4-10.2); GFR AFRICAN-AMERICAN > 60; GFR NON-AFRICAN AMERICAN > 60
[2017-05-10] MEDS ORDERED: DiphenhydrAMINE 50 mg/ml Inj IVP STA (01:21)
[2017-05-10] MEDS ORDERED: Promethazine 25 MG in Sodium Chloride 0.9% 100 ML IV STA (01:27)
[2017-05-10] MEDS ORDERED: DiphenhydrAMINE 50 mg/ml Inj ONE (01:42)
[2017-05-10] MEDS ORDERED: Sodium Chloride 0.9% 1,000 ML IV STA (02:49)
[2017-05-10] MEDS ORDERED: Morphine 4 MG/ML VIAL IVP ONE (03:35)
[2017-05-10 03:57] LABS: BANDS 2 % (0-2); LYMPHOCYTE 9 % (20-50); MONOCYTE 9 % (0-10); NEUTROPHIL 80 % (42-75); PLATELET ESTIMATE SLIGHTLY INCREASED (NORMAL); TOTAL CELLS COUNTED 100
[2017-05-10 05:39] VITALS: BP 150/92; PULSE 104; RESP 19; TEMP 98.2
[2017-05-10 05:48] VITALS: O2SAT 94
== END 2017-05-10 05:39 | disposition home or self-care (01) ==
LOC: H.ER 00:02
DX: M06.9 Rheumatoid arthritis, unspecified (principal); F11.20 Opioid dependence, uncomplicated; E11.9 Type 2 diabetes mellitus without complications; F17.200 Nicotine dependence, unspecified, uncomplicated; I10 Essential (primary) hypertension; J45.909 Unspecified asthma, uncomplicated; M79.7 Fibromyalgia; Z88.0 Allergy status to penicillin
CPT/HCPCS: 80053; 82550; 82948; 85025; 85651; 96374; 96375; 99282; J1200; J1885; J2060; J2270; J2550; J2930; J7040

== ENCOUNTER 2017-05-14 08:40 | Emergency (ER) | payer OTHER ==
[2017-05-14 08:40] VITALS: BMI 23.0
[2017-05-14 08:52] VITALS: RESP 18; TEMP 97; O2SAT 98
--- NOTE | 2017-05-14 09:19 | ED PDOC ---
HPI: General Adult Time Seen by Provider: 05/14/17 09:05 Chief Complaint (Nursing): Pain, Chronic Chief Complaint (Provider): chronic pain History Per: Patient History/Exam Limitations: no limitations Onset/Duration Of Symptoms: Days (years) Additional Complaint(s): 52 y/o female history of rheumatoid arthritis, fibromyalgia, asthma, diabetes brought in by EMS for evaluation of ongoing body pain for a long time. Patient states she finished her monthly Percocet prescription and the primary doctor will not give more. Denies fever, nausea/vomiting, chest pain, shortness of breath, palpitations, abdominal pain, changes in bowel movements, urinary symptoms. Has general pain to the extremities. Pt. with multiple ER visits to multiple ERs for pain meds. Past Medical History Reviewed: Nursing Documentation, Vital Signs Vital Signs: Last Vital Signs Temp 97 F L 05/14/17 08:48 Pulse 107 H 05/14/17 08:48 Resp 18 05/14/17 08:48 BP 175/124 H 05/14/17 08:48 Pulse Ox 98 05/14/17 10:03 - Medical History PMH: Asthma, Fibromyalgia, HTN, Rheumatoid Arthritis Denies: Chronic Kidney Disease - Surgical History Surgical History: No Surg Hx - Family History Family History: States: Unknown Family Hx - Living Arrangements Living Arrangements: With Family - Social History Current smoker - smoking cessation education provided: No Alcohol: None Drugs: Denies - Immunization History Hx Tetanus Toxoid Vaccination: No Hx Influenza Vaccination: No Hx Pneumococcal Vaccination: No - Home Medications Home Medications: Ambulatory Orders Medication Instructions Recorded Albuterol HFA [Ventolin HFA 90 0.09 mg IH Q4 PRN #1 puff 03/15/15 mcg/actuation (8 g)] Pregabalin [Lyrica] 75 mg PO DAILY 08/15/15 Albuterol/Ipratropium [Duoneb 3 2 ea IH Q4H PRN #100 neb 09/10/15 mg/0.5 mg (3 ml) UD] Spacer, Inhalation [Aerochamber] 1 dev IH DAILY #1 dev 09/10/15 Fluconazole [Diflucan] 150 mg PO ONCE #2 tab 10/04/15 Leflunomide [Arava] 20 mg PO DAILY 10/04/15 Mometasone/Formoterol [Dulera 200 2 puff PO BID PRN 12/03/15 Mcg/5 Mcg Inhaler] hydroCHLOROthiazide [Hydrodiuril] 25 mg PO DAILY #14 tab 12/04/15 oxyCODONE/Acetaminophen [Percocet 1 tab PO TID #24 tab 12/04/15 5/325 mg Tab] Enoxaparin [Lovenox] 40 mg IJ DAILY #14 syr 04/22/16 Enoxaparin [Lovenox] 40 mg SC DAILY 04/22/16 Prednisone [Conchis] 5 mg PO DAILY 04/22/16 amLODIPine [Norvasc] 10 mg PO DAILY 04/22/16 Meloxicam [Mobic] 7.5 mg PO DAILY PRN #30 tab 10/09/16 Meloxicam 7.5 mg PO BID PRN #14 tablet 05/09/17 Cyclobenzaprine [Cyclobenzaprine 10 mg PO BID PRN #14 tab 05/10/17 HCl] Prednisone 50 mg PO DAILY 4 Days tablet 05/10/17 traMADol [Ultram] 50 mg PO Q8 PRN #12 tab 05/10/17 Cyclobenzaprine [Flexeril] 5 mg PO BID PRN 5 Days tab 05/14/17 Gabapentin 300 mg PO BID PRN 5 Days capsule 05/14/17 Ibuprofen [Motrin] 600 mg PO TID 7 Days tab 05/14/17 Ondansetron [Zofran] 4 mg PO Q8H PRN #6 tab 05/14/17 - Allergies Allergies/Adverse Reactions: Allergies Allergy/AdvReac Type Severity Reaction Status Date / Time Penicillins Allergy Unknown RASH Verified 05/14/17 08:48 SEAFOOD Allergy RASH Uncoded 05/14/17 08:48 Review of Systems ROS Statement: Except As Marked, All Systems Reviewed And Found Negative Musculoskeletal: Positive for: Other (extremities and general pain ) Physical Exam - Reviewed Nursing Documentation Reviewed: Yes Vital Signs Reviewed: Yes - Physical Exam Appears: Positive for: Non-toxic, No Acute Distress Head Exam: Positive for: ATRAUMATIC, NORMAL INSPECTION, NORMOCEPHALIC Skin: Positive for: Normal Color, Warm, DRY Eye Exam: Positive for: EOMI, Normal appearance, PERRL ENT: Positive for: Normal ENT Inspection Neck: Positive for: Normal, Painless ROM Cardiovascular/Chest: Positive for: Regular Rate, Rhythm Respiratory: Positive for: CNT, Normal Breath Sounds Gastrointestinal/Abdominal: Positive for: Normal Exam, Bowel Sounds, Soft. Negative for: Tenderness Back: Positive for: Normal Inspection Extremity: Positive for: Normal ROM. Negative for: Tenderness, Pedal Edema Neurologic/Psych: Positive for: Alert, Oriented. Negative for: Motor/Sensory Deficits - ECG O2 Sat by Pulse Oximetry: 98 Pulse Ox Interpretation: Normal - Progress ED Course And Treament: 1013: Stable. Multiple ER visits for pain meds. Advised about pain management protocol in the ER. FU with pcp. Pt. is aaox3. Pain controlled. Ambulating. Disposition - Clinical Impression Clinical Impression: Chronic pain - Patient ED Disposition Is Patient to be Admitted: No Counseled Patient/Family Regarding: Diagnosis, Need For Followup, Rx Given - Disposition Referrals: [facility] [Outside] - 05/15/17 Disposition: Routine/Home Disposition Time: 10:14 Condition: STABLE Additional Instructions: Return if not better in 3 days. Prescriptions: Cyclobenzaprine [Flexeril] 5 mg PO BID PRN 5 Days tab PRN Reason: Pain, Moderate (4-7) Gabapentin 300 mg PO BID PRN 5 Days capsule PRN Reason: Pain, Moderate (4-7) Ibuprofen [Motrin] 600 mg PO TID 7 Days tab Ondansetron [Zofran] 4 mg PO Q8H PRN #6 tab PRN Reason: Nausea/Vomiting Instructions: Chronic Pain (DC) Forms: [employer] (Faroese)
[2017-05-14 10:51] VITALS: BP 125/58; PULSE 95
== END 2017-05-14 10:55 | disposition home or self-care (01) ==
LOC: H.ER 08:40
DX: G89.29 Other chronic pain (principal); E11.9 Type 2 diabetes mellitus without complications; I10 Essential (primary) hypertension; J45.909 Unspecified asthma, uncomplicated; M06.9 Rheumatoid arthritis, unspecified; M79.7 Fibromyalgia; Z88.0 Allergy status to penicillin
CPT/HCPCS: 96372; 99284; J1885